=== PATIENT | male | born 1935 | race Caucasian/White ===

== ENCOUNTER 2018-10-16 12:40 | Inpatient (IN) ==
--- NOTE | 2018-10-16 13:17 | ED ---
HPI General Chief complaint: Shortness of Breath/Dyspnea Stated complaint: Doctor Sent Time Seen by Provider: 10/16/18 13:00 History of Present Illness HPI narrative: This is an 83-year-old male who reports a history of hypertension and hyperlipidemia. He presents for evaluation of dyspnea on exertion. He reports that over the past several months he has been having gradually worsening dyspnea with exertion. He was seen today by his primary care physician Dr. levin and sent here for further evaluation. He denies orthopnea. He reports bilateral lower extremity edema as well as right lower leg pain from a fall 4 weeks ago. He is denying any chest pain, dizziness, lightheadedness, palpitations, nausea, vomiting, abdominal pain. Symptoms are moderate, aggravated by exertion. He has no other complaints at this time. Related Data Home Medications Medication Instructions Recorded Confirmed aspirin [Aspir-Low] 81 mg PO DAILY 10/16/18 10/16/18 Allergies Allergy/AdvReac Type Severity Reaction Status Date / Time No Known Allergies Allergy Verified 10/16/18 14:30 Review of Systems ROS: all other systems reviewed are negative [facility] Medical History Medical History HTN (hypertension) (Acute) High cholesterol (Acute) Social History Social History Substance History: No History of Abuse Second Hand Smoke Exposure: No Smoking Status: Former smoker How Often Do You Have a Drink Containing Alcohol: Monthly or less Recent Travel in [facility] within the Last 8 Weeks: No Recent Out of Country Travel within the Last 8 Weeks: No Immunization History Tetanus Immunization: Unsure Exam Narrative Exam Narrative: GENERAL: Pleasant well-developed well-nourished male in no acute distress SKIN: Warm and dry. HEAD: Atraumatic. Normocephalic. EYES: Pupils equal and round. No scleral icterus. No injection or drainage. ENT: No nasal bleeding or discharge. Mucous membranes pink and moist. NECK: Trachea midline. No JVD. CARDIOVASCULAR: Irregular tachycardic rate and rhythm. No murmur appreciated. RESPIRATORY: No accessory muscle use. Clear to auscultation. Breath sounds equal bilaterally. GASTROINTESTINAL: Abdomen soft, non-tender, nondistended. Hepatic and splenic margins not palpable. MUSCULOSKELETAL: No obvious deformities. 2+ lower extremity edema bilaterally. There is ecchymosis to the anterior right patten. NEUROLOGICAL: Awake and alert. No obvious cranial nerve deficits. Motor grossly within normal limits. Normal speech. Course Initial Documented Vital Signs Temperature 97.3 F L 12/11/18 12:43 Pulse Rate 155 H 10/16/18 12:43 Respiratory Rate 19 10/16/18 12:43 Blood Pressure 166/132 H 10/16/18 12:43 Pulse Oximetry 92 L 10/16/18 12:43 Last Documented Vital Signs Temperature 97.3 F L 10/16/18 12:43 Pulse Rate 122 H 10/16/18 14:24 Respiratory Rate 16 10/16/18 14:24 Blood Pressure 157/105 H 10/16/18 14:24 Pulse Oximetry 95 10/16/18 14:24 Medical Decision Making MDM Narrative Medical decision making narrative: The patient was placed on ECG monitoring pulse oximetry. A 12-lead EKG was obtained revealing atrial fibrillation with RVR, rate of 156. Lab work, lower extremity ultrasound, chest x-ray ordered. The patient was given a bolus of diltiazem. The patient's heart rate remained in atrial fibrillation with RVR, therefore he was started on diltiazem drip. Lab work and imaging studies have been reviewed. I discussed with Eileen at Dr. Aleman's office who is agreeable with admission to Dr. Aleman. Medical Screen Exam Complete: Yes Emergency Medical Condition: Yes Differential Diagnosis Differential Diagnosis: Atrial fibrillation, CHF, pulmonary embolism, pneumonia , pneumothorax, SVT, ventricular tachycardia Lab Data Result diagrams: 10/16/18 13:15 10/16/18 13:15 Lab Results 10/16/18 10/16/18 10/16/18 Range/Units 13:15 13:15 13:15 WBC 7.1 (4.0-11.0) th/mm3 RBC 4.03 L (4.50-5.90) mil/mm3 Hgb 12.9 L (13.0-17.0) gm/dL Hct 39.3 (39.0-51.0) % MCV 97.6 (80.0-100.0) fL MCH 32.1 (27.0-34.0) pg MCHC 32.9 (32.0-36.0) % RDW 16.0 (11.6-17.2) % Plt Count 260 (150-450) th/mm3 MPV 7.5 (7.0-11.0) fL Neut % (Auto) 77.5 H (16.0-70.0) % Lymph % (Auto) 11.6 (9.0-44.0) % Calloway % (Auto) 9.8 H (0.0-8.0) % Eos % (Auto) 0.7 (0.0-4.0) % Baso % (Auto) 0.4 (0.0-2.0) % Neut # (Auto) 5.5 (1.8-7.7) th/mm3 Lymph # (Auto) 0.8 L (1.0-4.8) th/mm3 Calloway # (Auto) 0.7 (0.0-0.9) th/mm3 Eos # (Auto) 0.0 (0.0-0.4) th/mm3 Baso # (Auto) 0.0 (0.0-0.2) th/mm3 WBC Differential . Differential Comment Auto diff final PT 10.8 (9.8-11.6) sec INR 1.1 Ratio APTT 28.0 (23.4-31.7) sec Sodium 142 (136-145) meq/L Potassium 4.2 (3.5-5.1) meq/L Chloride 103 (98-107) meq/L Carbon Dioxide 31.7 (21.0-32.0) meq/L Anion Gap 7 (5-15) meq/L BUN 23 H (7-18) mg/dL Creatinine 1.11 (0.60-1.30) mg/dL Estimated GFR 63 L (>89) mL/min Random Glucose 112 H (74-106) mg/dL Calcium 8.6 (8.5-10.1) mg/dL Magnesium 2.0 (1.5-2.5) mg/dL Total Bilirubin 0.6 (0.2-1.0) mg/dL AST 32 (15-37) U/L ALT 47 (12-78) U/L Alkaline Phosphatase 68 (45-117) U/L Total Creatine Kinase 99 (39-308) U/L Troponin I Less than 0.02 L (0.02-0.05) ng/mL B-Natriuretic Peptide (0-100) pg/mL Total Protein 7.4 (6.4-8.2) g/dL Albumin 3.6 (3.4-5.0) g/dL TSH (0.358-3.740) uIU/mL 10/16/18 10/16/18 Range/Units 13:15 13:15 WBC (4.0-11.0) th/mm3 RBC (4.50-5.90) mil/mm3 Hgb (13.0-17.0) gm/dL Hct (39.0-51.0) % MCV (80.0-100.0) fL MCH (27.0-34.0) pg MCHC (32.0-36.0) % RDW (11.6-17.2) % Plt Count (150-450) th/mm3 MPV (7.0-11.0) fL Neut % (Auto) (16.0-70.0) % Lymph % (Auto) (9.0-44.0) % Calloway % (Auto) (0.0-8.0) % Eos % (Auto) (0.0-4.0) % Baso % (Auto) (0.0-2.0) % Neut # (Auto) (1.8-7.7) th/mm3 Lymph # (Auto) (1.0-4.8) th/mm3 Calloway # (Auto) (0.0-0.9) th/mm3 Eos # (Auto) (0.0-0.4) th/mm3 Baso # (Auto) (0.0-0.2) th/mm3 WBC Differential Differential Comment PT (9.8-11.6) sec INR Ratio APTT (23.4-31.7) sec Sodium (136-145) meq/L Potassium (3.5-5.1) meq/L Chloride (98-107) meq/L Carbon Dioxide (21.0-32.0) meq/L Anion Gap (5-15) meq/L BUN (7-18) mg/dL Creatinine (0.60-1.30) mg/dL Estimated GFR (>89) mL/min Random Glucose (74-106) mg/dL Calcium (8.5-10.1) mg/dL Magnesium (1.5-2.5) mg/dL Total Bilirubin (0.2-1.0) mg/dL AST (15-37) U/L ALT (12-78) U/L Alkaline Phosphatase (45-117) U/L Total Creatine Kinase (39-308) U/L Troponin I (0.02-0.05) ng/mL B-Natriuretic Peptide 233 H (0-100) pg/mL Total Protein (6.4-8.2) g/dL Albumin (3.4-5.0) g/dL TSH 1.920 (0.358-3.740) uIU/mL Imaging Data Radiologist's impression: Chest X-Ray 10/16/18 13:12 CONCLUSION: No evidence of acute cardiopulmonary process. Venous Doppler Study 10/16/18 13:12 CONCLUSION: The study is negative for bilateral lower extremity deep venous thrombosis. Discharge Plan Discharge Disposition Patient Disposition: ED Admit(ED Internal Use Only) Discharge Condition Condition: Stable Discharge Order Discharge Orders: ED Use Only Admit Order (Routine); Ordered 10/16/18 Ordered By: Iain Short Discharge Details Diagnosis: Atrial fibrillation with RVR Physicians Team ED Provider: Will Ruby ED Midlevel Provider: Iain Short Primary Care Provider: Cj Aleman Rxs /Orders / Referrals /Forms Prescriptions: No Action aspirin [Aspir-Low] 81 mg Tablet,Delayed Release (Dr/Ec) 81 mg PO DAILY RF: 0 Status ED Status: With Doctor
[2018-10-16 13:41] LABS: Baso % (Auto) 0.4 % (0.0-2.0); Eos % (Auto) 0.7 % (0.0-4.0); Hematocrit 39.3 % (39.0-51.0); Hemoglobin 12.9 gm/dL (13.0-17.0); Lymph # (Auto) 0.8 th/mm3 (1.0-4.8); Lymph % (Auto) 11.6 % (9.0-44.0); Mean Corpuscular HGB Conc 32.9 % (32.0-36.0); Mean Corpuscular Hemoglobin 32.1 pg (27.0-34.0); Mean Corpuscular Volume 97.6 fL (80.0-100.0); Mean Platelet Volume 7.5 fL (7.0-11.0); Mono # (Auto) 0.7 th/mm3 (0.0-0.9); Mono % (Auto) 9.8 % (0.0-8.0); Neut # (Auto) 5.5 th/mm3 (1.8-7.7); Neut % (Auto) 77.5 % (16.0-70.0); Platelet Count 260 th/mm3 (150-450); Red Blood Count 4.03 mil/mm3 (4.50-5.90); White Blood Count 7.1 th/mm3 (4.0-11.0)
[2018-10-16 14:01] LABS: Albumin 3.6 g/dL (3.4-5.0); Anion Gap 7 meq/L (5-15); Aspartate Aminotransferase 32 U/L (15-37); Blood Urea Nitrogen 23 mg/dL (7-18); Calcium 8.6 mg/dL (8.5-10.1); Carbon Dioxide 31.7 meq/L (21.0-32.0); Chloride 103 meq/L (98-107); Glomerular Filtration Rate 63 mL/min (>89); Glucose,Random 112 mg/dL (74-106); Potassium 4.2 meq/L (3.5-5.1); Sodium 142 meq/L (136-145)
[2018-10-16 14:05] LABS: Alanine Aminotransferase 47 U/L (12-78); Alkaline Phosphatase 68 U/L (45-117); Total Protein 7.4 g/dL (6.4-8.2)
[2018-10-16 14:08] LABS: INR 1.1 Ratio; Prothrombin Time 10.8 sec (9.8-11.6)
--- NOTE | 2018-10-16 14:10 | US ---
EXAM DATE: 10/16/2018 1:54 PM EST AGE/SEX: 83 years / Male INDICATIONS: Bilateral leg swelling. CLINICAL DATA: This is the patient's initial encounter. Patient reports that signs and symptoms have been present for 1 month and indicates a pain score of 0/10. MEDICAL/SURGICAL HISTORY: Hypercholesterolemia. Hypertension. None. COMPARISON: No prior exams available for comparison. TECHNIQUE: Venous ultrasound of both lower extremities was performed from the inguinal ligament to t he proximal calf. Real-time, color Doppler and spectral tracing, compression and augmentation techni ques were used. FINDINGS: Right Leg: Normal compression of the deep venous system from the inguinal region to the proximal mahamed f. No echogenic clot is seen. Normal response of the venous system to augmentation and respiration. Left Leg: Normal compression of the deep venous system from the inguinal region to the proximal calf . No echogenic clot is seen. Normal response of the venous system to augmentation and respiration. Other: None. CONCLUSION: The study is negative for bilateral lower extremity deep venous thrombosis. Electronically signed by: Kali Branch MD 10/16/2018 2:09 PM EST
--- NOTE | 2018-10-16 14:22 | XR ---
EXAM DATE: 10/16/2018 2:16 PM EST AGE/SEX: 83 years / Male INDICATIONS: Dyspnea. CLINICAL DATA: This is the patient's initial encounter. Patient reports that signs and symptoms have been present for 1 month and indicates a pain score of 0/10. MEDICAL/SURGICAL HISTORY: None. . recent stents COMPARISON: No prior exams available for comparison. FINDINGS: Lungs are hypoaerated. There is no evidence of consolidating airspace disease or congestion. Heart and mediastinal structures are unremarkable. Osseous structures are intact. CONCLUSION: No evidence of acute cardiopulmonary process. Electronically signed by: Kali Branch MD 10/16/2018 2:20 PM EST
[2018-10-16] MEDS: dilTIAZem Inj 125 MG in Sodium Chlor 0.9% Inj 100 ML IV.CONT PRN (14:23)
[2018-10-16 14:45] LABS: Creatine Kinase 99 U/L (39-308)
[2018-10-16] MEDS ORDERED: Bisacodyl 10 MG Supp RECTAL PRN (16:23)
[2018-10-16] MEDS ORDERED: Acetaminophen 325 MG Tablet PO PRN (16:23)
--- NOTE | 2018-10-16 16:41 | CT ---
EXAM DATE: 10/16/2018 4:36 PM EST AGE/SEX: 83 years / Male INDICATIONS: Intermittent shortness of breath. CLINICAL DATA: This is the patient's initial encounter. Patient reports that signs and symptoms have been present for 1 week and indicates a pain score of 0/10. MEDICAL/SURGICAL HISTORY: Hypertension. None. RADIATION DOSE: 10.70 CTDI (mGy) COMPARISON: No prior exams available for comparison. TECHNIQUE: Volumetric scanning was performed using a multi-row detector CT scanner during bolus infu zeferino of 75 ml Omnipaque 350 (iohexol) nonionic water-soluble contrast as a single exam dose. The vianey a was post processed with a variety of visualization algorithms including full volume maximum intensi ty projection and sliding thin slab reformation. Using automated exposure control and adjustment of the mA and/or kV according to patient size, radiation dose was kept as low as reasonably achievable t o obtain optimal diagnostic quality images. DICOM format image data is available electronically for review and comparison. FINDINGS: Examination of the pulmonary vasculature demonstrates good filling of the main, lobar and segmental b ranches. There are no filling defects to suggest pulmonary embolism. Multiplanar reconstructions are also unremarkable. There is minimal groundglass opacity in the superior segment of both lower lobes likely inflammatory. Follow-up CT scan in 3 months is recommended to ensure resolution. Small bilateral effusions are pre sent. Examination of the mediastinum demonstrates no abnormally enlarged lymph nodes by CT criteria. No axi llary or hilar abnormalities are identified. Coronary artery calcifications are present. The visualiz ed upper abdominal structures are unremarkable. CONCLUSION: No evidence of pulmonary embolism. Scattered groundglass opacities bilaterally with small bilateral effusions. This may reflect edema. F ollowup CT scan in 3 months is recommended. Electronically signed by: Franki Alegre MD 10/16/2018 4:39 PM EST
[2018-10-16] MEDS ORDERED: Enoxaparin Inj 40 MG/0.4 ML Syringe SQ SCH (18:00)
--- NOTE | 2018-10-16 19:04 | P.CONCA ---
History of Present Illness Service: Cardiology Consult date: 10/16/18 Requesting Physician: Eileen Ardon Reason for Consult: Atrial fibrillation with RVR Primary Care Provider: Cj Aleman DO History of Present Illness: This is a 83-year-old male with a past medical history of atrial fibrillation, syncope, hyperlipidemia and hypertension. Over the last few months he has had an increase in shortness of breath with activity. He also complained of increase in swelling of the lower extremities. He states that 5 months ago he had a syncopal episode and was hospitalized in [place]. He had another syncopal episode 7 weeks ago, and fell on his right side. He was hospitalized at which time he had a stress test then a cardiac catheterization and 2 stents placed. His right leg is still bruised and has signs of inflammation. He is currently on a Cardizem gtt. He he denies any CP, pressure or dizziness. He does complain of mild SOB and edema in the lower extremities. Review of Systems All other systems reviewed negative except as stated in HPI [facility] - History History Provided By: Patient - Medical History Medical History: Medical History (Last Updated 10/16/18 @ 12:47 by Tereza Boyer) HTN (hypertension) High cholesterol - Tobacco History Second Hand Smoke Exposure: No Tobacco Use In Past 30 Days: No Smoking Status: Former smoker - Alcohol History How Often Do You Have a Drink Containing Alcohol: Monthly or less - Substance Use History Substance History: No History of Abuse - Travel History Recent Travel in the [place] Within the Last 8 Weeks: No Recent Travel Out of the Country Within the Last 8 Weeks: No - Immunization History Tetanus Immunization: Unsure Medications and Allergies Allergies Allergy/AdvReac Type Severity Reaction Status Date / Time No Known Allergies Allergy Verified 10/16/18 14:30 Home Medications Medication Instructions Recorded Confirmed Type aspirin [Aspir-Low] 81 mg PO DAILY 10/16/18 10/16/18 History Active Medications: Active Medications Acetaminophen (Tylenol) 650 mg PO Q4H PRN PRN Reason: Temp > 100.4 Al Hydroxide/Mg Hydroxide (Milk Of Magnesia Liq) 30 ml PO Q12H PRN PRN Reason: Mild Constipation Bisacodyl (Dulcolax Supp) 10 mg RECTAL DAILY PRN PRN Reason: SEVERE CONSITIPATION Enoxaparin Sodium (Lovenox Inj) 40 mg SQ Q24H MORENITA Diltiazem HCl 125 mg/ Sodium (Chloride) 125 mls @ 5 mls/hr IV.CONT TITRATE PRN ; Protocol PRN Reason: Per Protocol Last Titration: 10/16/18 15:00 Dose: 10 mg/hr, 10 mls/hr Lactulose (Lactulose Liq) 30 ml PO DAILY PRN PRN Reason: SEVERE CONSITIPATION Ondansetron HCl (Zofran Inj) 4 mg IV.PUSH Q6H PRN PRN Reason: NAUSEA OR VOMITING Senna/Docusate Sodium (Alee-Colace) 1 tab PO BID [facility] Sennosides (Senokot) 17.2 mg PO Q12H PRN PRN Reason: Moderate Constipation Sodium Chloride (Ns Flush) 2 ml IV.FLUSH BID MORENITA Sodium Chloride (Ns Flush) 2 ml IV.FLUSH PRN PRN PRN Reason: FLUSH AFTER USING IV ACCESS Exam Vital signs: Vital Signs 10/16/18 12:43 10/16/18 12:57 10/16/18 13:12 Temperature 97.3 F L Pulse Rate 155 H 121 H Respiratory Rate 19 20 Blood Pressure 166/132 H 140/98 H Pulse Oximetry 92 L 90 L 93 L 10/16/18 13:30 10/16/18 14:08 10/16/18 14:24 Temperature Pulse Rate 102 H 108 H 122 H Respiratory Rate 15 16 16 Blood Pressure 134/83 146/93 H 157/105 H Pulse Oximetry 93 L 94 L 95 10/16/18 15:00 10/16/18 16:00 10/16/18 17:00 Temperature Pulse Rate 114 H 104 H 102 H Respiratory Rate 15 17 16 Blood Pressure 160/85 H 145/72 H 140/93 H Pulse Oximetry 97 97 Intake & Output 10/15/18 10/16/18 10/16/18 18:59 06:59 18:59 Weight 108.862 kg - Constitutional no acute distress - Routine HEENT Exam Head: Present: normocephalic Eye: Present: PERRL ENT: Present: mucous membranes moist - Routine Neck Exam Present: full ROM - Routine Respiratory Exam Present: CTA bilaterally - Routine Cardiovascular Exam Present: S1, S2, tachycardia, irregular rhythm - Routine Abdominal Exam Present: normoactive bowel sounds - Routine Extremities Exam Present: edema, full ROM, pulses intact, normal capillary refill Comments: 2+ edema LE's, right lower extremities has signs of inflammation and is warm to touch. - Routine Skin Exam Present: intact - Routine Neurological Exam Present: oriented X3 Results 10/16/18 13:15 10/16/18 13:15 Cardiac Enzymes 10/16/18 10/16/18 Range/Units 13:15 13:15 AST 32 (15-37) U/L Troponin I Less than 0.02 L (0.02-0.05) ng/mL B-Natriuretic Peptide 233 H (0-100) pg/mL Coagulation 10/16/18 10/16/18 Range/Units 13:15 13:15 PT 10.8 (9.8-11.6) sec APTT 28.0 (23.4-31.7) sec B-Natriuretic Peptide 233 H (0-100) pg/mL CBC 10/16/18 Range/Units 13:15 WBC 7.1 (4.0-11.0) th/mm3 RBC 4.03 L (4.50-5.90) mil/mm3 Hgb 12.9 L (13.0-17.0) gm/dL Hct 39.3 (39.0-51.0) % Plt Count 260 (150-450) th/mm3 Neut # (Auto) 5.5 (1.8-7.7) th/mm3 Lymph # (Auto) 0.8 L (1.0-4.8) th/mm3 Kay # (Auto) 0.7 (0.0-0.9) th/mm3 Eos # (Auto) 0.0 (0.0-0.4) th/mm3 Baso # (Auto) 0.0 (0.0-0.2) th/mm3 Comprehensive Metabolic Panel 10/16/18 Range/Units 13:15 Sodium 142 (136-145) meq/L Potassium 4.2 (3.5-5.1) meq/L Chloride 103 (98-107) meq/L Carbon Dioxide 31.7 (21.0-32.0) meq/L BUN 23 H (7-18) mg/dL Creatinine 1.11 (0.60-1.30) mg/dL Calcium 8.6 (8.5-10.1) mg/dL AST 32 (15-37) U/L ALT 47 (12-78) U/L Alkaline Phosphatase 68 (45-117) U/L Total Protein 7.4 (6.4-8.2) g/dL Albumin 3.6 (3.4-5.0) g/dL Intake and Output 10/16/18 10/16/18 10/16/18 06:59 14:59 22:59 Other: Weight 108.862 kg Patient Weight 10/17/18 06:59 Weight 108.862 kg - Imaging and Cardiology Imaging: Impressions Chest X-Ray 10/16/18 13:12 CONCLUSION: No evidence of acute cardiopulmonary process. Venous Doppler Study 10/16/18 13:12 CONCLUSION: The study is negative for bilateral lower extremity deep venous thrombosis. Chest CTA 10/16/18 14:22 CONCLUSION: No evidence of pulmonary embolism. Scattered groundglass opacities bilaterally with small bilateral effusions. This may reflect edema. Followup CT scan in 3 months is recommended. Assessment and Plan - Assessment (1) Atrial fibrillation with RVR Code(s): I48.91 - Unspecified atrial fibrillation Status: Acute (2) HTN (hypertension) Code(s): I10 - Essential (primary) hypertension Status: Acute (3) Hyperlipidemia Code(s): E78.5 - Hyperlipidemia, unspecified Status: Acute - Plan Patient currently in atrial fibrillation with RVR, we will continue Cardizem gtt. Patient receiving Lovenox today for anticoagulation. We will restart patient on his Eliquis tomorrow. We will obtain a 2D echo to evaluate LV function. Troponin levels are not trending, no signs of acute coronary syndrome at this time. We will continue to monitor patient during hospitalization. The patient was seen and evaluated by Dr. Zamora who participated in care, management and decision making. - Attending Attestation Patient seen and examined. I reviewed and agree with the evaluation and plan as presented. Continue rate control and anticoagulation. Check echo to evaluate LV function. Continue to monitor on telemetry. Will continue to follow in the hospital and as outpatient as well.
[2018-10-16] MEDS: Senna/Docusate Sodium 8.6/50 MG Tablet PO SCH (22:07)
[2018-10-17] MEDS: dilTIAZem Inj 125 MG in Sodium Chlor 0.9% Inj 100 ML IV.CONT PRN ×2 (00:15→15:50)
[2018-10-17 07:25] LABS: Baso % (Auto) 0.6 % (0.0-2.0); Eos # (Auto) 0.1 th/mm3 (0.0-0.4); Eos % (Auto) 1.3 % (0.0-4.0); Hematocrit 39.5 % (39.0-51.0); Hemoglobin 13.2 gm/dL (13.0-17.0); Lymph # (Auto) 0.9 th/mm3 (1.0-4.8); Lymph % (Auto) 14.5 % (9.0-44.0); Mean Corpuscular HGB Conc 33.3 % (32.0-36.0); Mean Corpuscular Hemoglobin 31.4 pg (27.0-34.0); Mean Corpuscular Volume 94.3 fL (80.0-100.0); Mean Platelet Volume 8.1 fL (7.0-11.0); Mono # (Auto) 0.7 th/mm3 (0.0-0.9); Mono % (Auto) 11.5 % (0.0-8.0); Neut # (Auto) 4.7 th/mm3 (1.8-7.7); Neut % (Auto) 72.1 % (16.0-70.0); Platelet Count 260 th/mm3 (150-450); Red Blood Count 4.19 mil/mm3 (4.50-5.90); Red Cell Distribution Width 15.5 % (11.6-17.2); White Blood Count 6.5 th/mm3 (4.0-11.0)
--- NOTE | 2018-10-17 08:19 | P.HPFP ---
History of Present Illness Primary Care Physician: Cj Aleman DO History of Present Illness: This is an 83-year-old male who reports a history of hypertension and hyperlipidemia. He presents for evaluation of dyspnea on exertion going on for several months. He also states he has been having B/L le edema. He was seen in office today, EKG done showing Afib w/ rvr, he was referred to ER. - Diagnosis (1) Atrial fibrillation with RVR (2) HTN (hypertension) (3) Hyperlipidemia (4) Edema Inpatient Certification: I certify that the inpatient services were ordered in accordance with Medicare regulations governing the order. This includes certification that hospital inpatient services are reasonable and necessary and in the case of services not specified as inpatient-only under 42 CFR 419.22(n), that they are appropriately provided as inpatient services in accordance to with the 2-midnight benchmark under 43 CFR 412.3(e) Estimated Total Length of Stay (Days): 3 Plans for Post Hospital Care: Not yet determined PMFSH - History History Provided By: Patient - Medical History Medical History: Medical History (Last Updated 10/16/18 @ 12:47 by Terzea Boyer) HTN (hypertension) High cholesterol - Tobacco History Second Hand Smoke Exposure: No Tobacco Use In Past 30 Days: No Smoking Status: Former smoker Tobacco Type: Cigarettes - Alcohol History How Often Do You Have a Drink Containing Alcohol: Monthly or less - Substance Use History Substance History: No History of Abuse - Travel History Recent Travel in the [place] Within the Last 8 Weeks: No Recent Travel Out of the Country Within the Last 8 Weeks: No - Immunization History Tetanus Immunization: <5 Years Hx Influenza Vaccine This Season: Yes Medications and Allergies Active Medications: Active Medications Acetaminophen (Tylenol) 650 mg PO Q4H PRN PRN Reason: Temp > 100.4 Al Hydroxide/Mg Hydroxide (Milk Of Magnesia Liq) 30 ml PO Q12H PRN PRN Reason: Mild Constipation Bisacodyl (Dulcolax Supp) 10 mg RECTAL DAILY PRN PRN Reason: SEVERE CONSITIPATION Enoxaparin Sodium (Lovenox Inj) 40 mg SQ Q24H [facility] [place] Last Admin: 10/16/18 21:23 Dose: 40 mg Diltiazem HCl 125 mg/ Sodium (Chloride) 125 mls @ 5 mls/hr IV.CONT TITRATE PRN ; Protocol PRN Reason: Per Protocol Last Titration: 10/17/18 02:03 Dose: 5 mg/hr, 5 mls/hr Lactulose (Lactulose Liq) 30 ml PO DAILY PRN PRN Reason: SEVERE CONSITIPATION Ondansetron HCl (Zofran Inj) 4 mg IV.PUSH Q6H PRN PRN Reason: NAUSEA OR VOMITING Senna/Docusate Sodium (Alee-Colace) 1 tab PO BID [facility] [place] Last Admin: 10/16/18 22:07 Dose: Not Given Sennosides (Senokot) 17.2 mg PO Q12H PRN PRN Reason: Moderate Constipation Sodium Chloride (Ns Flush) 2 ml IV.FLUSH BID [facility] [place] Last Admin: 10/16/18 22:07 Dose: Not Given Sodium Chloride (Ns Flush) 2 ml IV.FLUSH PRN PRN PRN Reason: FLUSH AFTER USING IV ACCESS Allergies Allergy/AdvReac Type Severity Reaction Status Date / Time No Known Allergies Allergy Verified 10/16/18 14:30 Home Medications Medication Instructions Recorded Confirmed Type aspirin [Aspir-Low] 81 mg PO DAILY 10/16/18 10/16/18 History Exam Vital signs: Vital Signs 10/16/18 12:43 10/16/18 12:57 10/16/18 13:12 Temperature 97.3 F L Pulse Rate 155 H 121 H Respiratory Rate 19 20 Blood Pressure 166/132 H 140/98 H Pulse Oximetry 92 L 90 L 93 L 10/16/18 13:30 10/16/18 14:08 10/16/18 14:24 Temperature Pulse Rate 102 H 108 H 122 H Respiratory Rate 15 16 16 Blood Pressure 134/83 146/93 H 157/105 H Pulse Oximetry 93 L 94 L 95 10/16/18 15:00 10/16/18 16:00 10/16/18 17:00 Temperature Pulse Rate 114 H 104 H 102 H Respiratory Rate 15 17 16 Blood Pressure 160/85 H 145/72 H 140/93 H Pulse Oximetry 97 97 10/16/18 19:00 10/16/18 21:00 10/16/18 21:50 Temperature Pulse Rate 102 H 96 H 109 H Respiratory Rate 16 16 Blood Pressure 122/65 126/71 Pulse Oximetry 95 10/16/18 21:57 10/16/18 22:00 10/16/18 23:00 Temperature 98.6 F 98.6 F Pulse Rate 98 H 114 H 101 H Respiratory Rate 18 16 Blood Pressure 158/97 H 141/81 H Pulse Oximetry 96 94 L 10/17/18 00:00 10/17/18 01:00 10/17/18 02:00 Temperature Pulse Rate 117 H 89 92 H Respiratory Rate Blood Pressure Pulse Oximetry 10/17/18 03:00 10/17/18 04:00 10/17/18 05:00 Temperature 98.6 F Pulse Rate 95 H 92 H 98 H Respiratory Rate 16 Blood Pressure 117/60 Pulse Oximetry 98 10/17/18 06:00 Temperature Pulse Rate 98 H Respiratory Rate Blood Pressure Pulse Oximetry Intake & Output 10/16/18 10/17/18 10/17/18 18:59 06:59 18:59 Intake Total 365 / 365 Output Total 750 / 750 Balance -385 / -385 Weight 108.862 kg 113 kg Intake: IV 125 / 125 Cardizem Inj 125 MG In NS Inj 125 / 125 100 ML @ 5 MG/HR 5 mls/hr IV. CONT TITRATE PRN Rx#:[id number] Oral 240 / 240 Output: Urine 750 / 750 Other: Date of Last Bowel Movement 10/17/18 # Bowel Movements 1 Weight On Admission 113 kg - Constitutional no acute distress - Routine HEENT Exam Eye: Present: PERRL ENT: Present: mucous membranes moist - Routine Respiratory Exam Present: CTA bilaterally - Routine Cardiovascular Exam Present: S1, S2 - Routine Abdominal Exam Present: soft, normoactive bowel sounds - Routine Extremities Exam Present: edema - Routine Skin Exam Present: dry, warm - Routine Neurological Exam Present: alert, oriented X3 Results - Labs Result diagrams: 10/17/18 05:52 10/16/18 13:15 Abnormal lab results 10/16/18 10/16/18 10/16/18 Range/Units 13:15 13:15 13:15 RBC 4.03 L (4.50-5.90) mil/mm3 Hgb 12.9 L (13.0-17.0) gm/dL Neut % (Auto) 77.5 H (16.0-70.0) % Bennett % (Auto) 9.8 H (0.0-8.0) % Lymph # (Auto) 0.8 L (1.0-4.8) th/mm3 BUN 23 H (7-18) mg/dL Estimated GFR 63 L (>89) mL/min Random Glucose 112 H (74-106) mg/dL Troponin I Less than 0.02 L (0.02-0.05) ng/mL B-Natriuretic Peptide 233 H (0-100) pg/mL 10/17/18 Range/Units 05:52 RBC 4.19 L (4.50-5.90) mil/mm3 Hgb (13.0-17.0) gm/dL Neut % (Auto) 72.1 H (16.0-70.0) % Bennett % (Auto) 11.5 H (0.0-8.0) % Lymph # (Auto) 0.9 L (1.0-4.8) th/mm3 BUN (7-18) mg/dL Estimated GFR (>89) mL/min Random Glucose (74-106) mg/dL Troponin I (0.02-0.05) ng/mL B-Natriuretic Peptide (0-100) pg/mL Short CBC 10/16/18 10/17/18 Range/Units 13:15 05:52 WBC 7.1 6.5 (4.0-11.0) th/mm3 Hgb 12.9 L 13.2 (13.0-17.0) gm/dL Hct 39.3 39.5 (39.0-51.0) % Plt Count 260 260 (150-450) th/mm3 BMP 10/16/18 13:15 Sodium 142 Potassium 4.2 Chloride 103 Carbon Dioxide 31.7 BUN 23 H Creatinine 1.11 Calcium 8.6 Cardiac Enzymes 10/16/18 Range/Units 13:15 Total Creatine Kinase 99 (39-308) U/L Troponin I Less than 0.02 L (0.02-0.05) ng/mL Liver Function 10/16/18 Range/Units 13:15 Total Bilirubin 0.6 (0.2-1.0) mg/dL AST 32 (15-37) U/L ALT 47 (12-78) U/L Alkaline Phosphatase 68 (45-117) U/L Albumin 3.6 (3.4-5.0) g/dL - Imaging Impressions Chest X-Ray 10/16/18 13:12 CONCLUSION: No evidence of acute cardiopulmonary process. Venous Doppler Study 10/16/18 13:12 CONCLUSION: The study is negative for bilateral lower extremity deep venous thrombosis. Chest CTA 10/16/18 14:22 CONCLUSION: No evidence of pulmonary embolism. Scattered groundglass opacities bilaterally with small bilateral effusions. This may reflect edema. Followup CT scan in 3 months is recommended. Caprini VTE Risk Assessment Caprini VTE Risk Assessment: Moderate/High Risk (score >= 2) Caprini Risk Assessment Model: Point Value = 1 Point Value = 2 Point Value = 3 Point Value = 5 Age 41-60 Minor surgery BMI > 25 kg/m2 Swollen legs Varicose veins or History of unexplained or recurrent spontaneous Oral contraceptives or hormone replacement Sepsis (< 1 month) Serious lung disease, including pneumonia (< 1 month) Abnormal pulmonary function Acute myocardial infarction Congestive heart failure (< 1 month) History of inflammatory bowel disease Medical patient at bed rest Age 61-74 Arthroscopic surgery Major open surgery (> 45 min) Laparoscopic surgery (> 45 min) Malignancy Confined to bed (> 72 hours) Immobilizing plaster cast Central venous access Age >= 75 History of VTE Family history of VTE Factor V Leiden Prothrombin [id number] Lupus anticoagulant Anticardiolipin antibodies Elevated serum homocysteine Heparin-induced thrombocytopenia Other congenital or acquired thrombophilia Stroke (< 1 month) Elective arthroplasty Hip, pelvis, or leg fracture Acute spinal cord injury (< 1 month) Prophylaxis Regimen: Total Risk Factor Score Risk Level Prophylaxis Regimen 0-1 Low Early ambulation 2 Moderate Order ONE of the following: *Sequential Compression Device (SCD) *Heparin 5000 units SQ BID 3-4 Higher Order ONE of the following medications: *Heparin 5000 units SQ TID *Enoxaparin/Lovenox 40 mg SQ daily (WT < 150 kg, CrCl > 30 mL/min) *Enoxaparin/Lovenox 30 mg SQ daily (WT < 150 kg, CrCl > 10-29 mL/min) *Enoxaparin/Lovenox 30 mg SQ BID (WT < 150 kg, CrCl > 30 mL/min) AND/OR *Sequential Compression Device (SCD) 5 or more Highest Order ONE of the following medications: *Heparin 5000 units SQ TID (Preferred with Epidurals) *Enoxaparin/Lovenox 40 mg SQ daily (WT < 150 kg, CrCl > 30 mL/min) *Enoxaparin/Lovenox 30 mg SQ daily (WT < 150 kg, CrCl > 10-29 mL/min) *Enoxaparin/Lovenox 30 mg SQ BID (WT < 150 kg, CrCl > 30 mL/min) AND *Sequential Compression Device (SCD) Assessment and Plan - Assessment (1) Atrial fibrillation with RVR Code(s): I48.91 - Unspecified atrial fibrillation Status: Acute Plan: Cardiology consult, Cardizem gtt, Lovenox (2) HTN (hypertension) Code(s): I10 - Essential (primary) hypertension Status: Acute Plan: Cont to monitor, to bring in list of home med's (3) Hyperlipidemia Code(s): E78.5 - Hyperlipidemia, unspecified Status: Acute Plan: Cont home med's, to bring list in (4) Edema Code(s): R60.9 - Edema, unspecified Status: Acute Plan: cont lasix. H&P: Quality - VTE Deep Vein Thrombosis/Pulmonary Embolism Present on Admission: No
[2018-10-17] MEDS: Furosemide 40 MG Tablet PO SCH (08:33)
[2018-10-17] MEDS: Senna/Docusate Sodium 8.6/50 MG Tablet PO SCH ×2 (08:34→20:52)
--- NOTE | 2018-10-17 10:13 | P.PNCA ---
Subjective Interval history: Patient denies any CP, pressure, palpitations, dizziness or SOB. Patient does complain of LE edema more on the left LE. Medications and Allergies Allergies Allergy/AdvReac Type Severity Reaction Status Date / Time No Known Allergies Allergy Verified 10/16/18 14:30 Home Medications Medication Instructions Recorded Confirmed Type aspirin [Aspir-Low] 81 mg PO DAILY 10/16/18 10/16/18 History Active Medications: Active Medications Acetaminophen (Tylenol) 650 mg PO Q4H PRN PRN Reason: Temp > 100.4 Al Hydroxide/Mg Hydroxide (Milk Of Magnesia Liq) 30 ml PO Q12H PRN PRN Reason: Mild Constipation Apixaban (Eliquis) 5 mg PO BID [facility] Bisacodyl (Dulcolax Supp) 10 mg RECTAL DAILY PRN PRN Reason: SEVERE CONSITIPATION Furosemide (Lasix) 40 mg PO DAILY [facility] Last Admin: 10/17/18 08:33 Dose: 40 mg Diltiazem HCl 125 mg/ Sodium (Chloride) 125 mls @ 5 mls/hr IV.CONT TITRATE PRN ; Protocol PRN Reason: Per Protocol Last Titration: 10/17/18 02:03 Dose: 5 mg/hr, 5 mls/hr Lactulose (Lactulose Liq) 30 ml PO DAILY PRN PRN Reason: SEVERE CONSITIPATION Ondansetron HCl (Zofran Inj) 4 mg IV.PUSH Q6H PRN PRN Reason: NAUSEA OR VOMITING Potassium Chloride (K-Dur) 20 meq PO DAILY [facility] Last Admin: 10/17/18 08:33 Dose: 20 meq Senna/Docusate Sodium (Alee-Colace) 1 tab PO BID [facility] Last Admin: 10/17/18 08:34 Dose: Not Given Sennosides (Senokot) 17.2 mg PO Q12H PRN PRN Reason: Moderate Constipation Sodium Chloride (Ns Flush) 2 ml IV.FLUSH BID [facility] Last Admin: 10/17/18 08:33 Dose: 2 ml Sodium Chloride (Ns Flush) 2 ml IV.FLUSH PRN PRN PRN Reason: FLUSH AFTER USING IV ACCESS Physical Exam Vital signs: Vital Signs 10/16/18 12:43 10/16/18 12:57 10/16/18 13:12 Temperature 97.3 F L Pulse Rate 155 H 121 H Respiratory Rate 19 20 Blood Pressure 166/132 H 140/98 H Pulse Oximetry 92 L 90 L 93 L 10/16/18 13:30 10/16/18 14:08 10/16/18 14:24 Temperature Pulse Rate 102 H 108 H 122 H Respiratory Rate 15 16 16 Blood Pressure 134/83 146/93 H 157/105 H Pulse Oximetry 93 L 94 L 95 10/16/18 15:00 10/16/18 16:00 10/16/18 17:00 Temperature Pulse Rate 114 H 104 H 102 H Respiratory Rate 15 17 16 Blood Pressure 160/85 H 145/72 H 140/93 H Pulse Oximetry 97 97 10/16/18 19:00 10/16/18 21:00 10/16/18 21:50 Temperature Pulse Rate 102 H 96 H 109 H Respiratory Rate 16 16 Blood Pressure 122/65 126/71 Pulse Oximetry 95 10/16/18 21:57 10/16/18 22:00 10/16/18 23:00 Temperature 98.6 F 98.6 F Pulse Rate 98 H 114 H 101 H Respiratory Rate 18 16 Blood Pressure 158/97 H 141/81 H Pulse Oximetry 96 94 L 10/17/18 00:00 10/17/18 01:00 10/17/18 02:00 Temperature Pulse Rate 117 H 89 92 H Respiratory Rate Blood Pressure Pulse Oximetry 10/17/18 03:00 10/17/18 04:00 10/17/18 05:00 Temperature 98.6 F Pulse Rate 95 H 92 H 98 H Respiratory Rate 16 Blood Pressure 117/60 Pulse Oximetry 98 10/17/18 06:00 10/17/18 07:00 10/17/18 08:00 Temperature 98.4 F Pulse Rate 98 H 100 H 100 H Respiratory Rate 20 Blood Pressure 134/76 Pulse Oximetry 96 10/17/18 08:40 10/17/18 08:41 10/17/18 09:00 Temperature Pulse Rate 98 H Respiratory Rate Blood Pressure Pulse Oximetry 96 96 10/17/18 09:57 Temperature Pulse Rate 97 H Respiratory Rate Blood Pressure Pulse Oximetry Intake & Output 10/16/18 10/17/18 10/17/18 18:59 06:59 18:59 Intake Total 365 / 365 Output Total 750 / 750 Balance -385 / -385 Weight 108.862 kg 113 kg Intake: IV 125 / 125 Cardizem Inj 125 MG In NS Inj 125 / 125 100 ML @ 5 MG/HR 5 mls/hr IV. CONT TITRATE PRN Rx#:[id number] Oral 240 / 240 Output: Urine 750 / 750 Other: Date of Last Bowel Movement 10/17/18 10/16/18 # Bowel Movements 1 Weight On Admission 113 kg - Constitutional no acute distress - Routine HEENT Exam Head: Present: normocephalic Eye: Present: PERRL ENT: Present: mucous membranes moist - Routine Neck Exam Present: full ROM - Routine Respiratory Exam Present: CTA bilaterally - Routine Cardiovascular Exam Present: S1, S2, murmur. Absent: gallop, rubs - Routine Abdominal Exam Present: normoactive bowel sounds - Routine Extremities Exam Present: edema, full ROM, pulses intact, normal capillary refill. Absent: cyanosis, clubbing - Routine Skin Exam Present: intact - Routine Neurological Exam Present: oriented X3 - Detailed Neurological Exam: Coma Scale Eye Opening: Spontaneous Verbal Response: Oriented Motor Response: Obey commands Ivan Coma Scale Total: 15 - Routine Psychiatric Exam Present: normal affect Results 10/17/18 05:52 10/16/18 13:15 Cardiac Enzymes 10/16/18 10/16/18 Range/Units 13:15 13:15 AST 32 (15-37) U/L Troponin I Less than 0.02 L (0.02-0.05) ng/mL B-Natriuretic Peptide 233 H (0-100) pg/mL Coagulation 10/16/18 10/16/18 Range/Units 13:15 13:15 PT 10.8 (9.8-11.6) sec APTT 28.0 (23.4-31.7) sec B-Natriuretic Peptide 233 H (0-100) pg/mL CBC 10/16/18 10/17/18 Range/Units 13:15 05:52 WBC 7.1 6.5 (4.0-11.0) th/mm3 RBC 4.03 L 4.19 L (4.50-5.90) mil/mm3 Hgb 12.9 L 13.2 (13.0-17.0) gm/dL Hct 39.3 39.5 (39.0-51.0) % Plt Count 260 260 (150-450) th/mm3 Neut # (Auto) 5.5 4.7 (1.8-7.7) th/mm3 Lymph # (Auto) 0.8 L 0.9 L (1.0-4.8) th/mm3 [place] # (Auto) 0.7 0.7 (0.0-0.9) th/mm3 Eos # (Auto) 0.0 0.1 (0.0-0.4) th/mm3 Baso # (Auto) 0.0 0.0 (0.0-0.2) th/mm3 Comprehensive Metabolic Panel 10/16/18 Range/Units 13:15 Sodium 142 (136-145) meq/L Potassium 4.2 (3.5-5.1) meq/L Chloride 103 (98-107) meq/L Carbon Dioxide 31.7 (21.0-32.0) meq/L BUN 23 H (7-18) mg/dL Creatinine 1.11 (0.60-1.30) mg/dL Calcium 8.6 (8.5-10.1) mg/dL AST 32 (15-37) U/L ALT 47 (12-78) U/L Alkaline Phosphatase 68 (45-117) U/L Total Protein 7.4 (6.4-8.2) g/dL Albumin 3.6 (3.4-5.0) g/dL Intake and Output 10/16/18 10/17/18 10/17/18 22:59 06:59 14:59 Intake Total 365 / 365 Output Total 750 / 750 Balance -385 / -385 Intake: IV 125 / 125 Cardizem Inj 125 MG In NS Inj 125 / 125 100 ML @ 5 MG/HR 5 mls/hr IV. CONT TITRATE PRN Rx#:[id number] Oral 240 / 240 Output: Urine 750 / 750 Other: Date of Last Bowel Movement 10/16/18 10/17/18 10/16/18 # Bowel Movements 1 Weight 113 kg 113 kg Weight On Admission 113 kg - Imaging and Cardiology Imaging: Impressions Chest X-Ray 10/16/18 13:12 CONCLUSION: No evidence of acute cardiopulmonary process. Venous Doppler Study 10/16/18 13:12 CONCLUSION: The study is negative for bilateral lower extremity deep venous thrombosis. Chest CTA 10/16/18 14:22 CONCLUSION: No evidence of pulmonary embolism. Scattered groundglass opacities bilaterally with small bilateral effusions. This may reflect edema. Followup CT scan in 3 months is recommended. Assessment and Plan - Assessment (1) Atrial fibrillation with RVR Code(s): I48.91 - Unspecified atrial fibrillation Status: Acute (2) HTN (hypertension) Code(s): I10 - Essential (primary) hypertension Status: Acute (3) Hyperlipidemia Code(s): E78.5 - Hyperlipidemia, unspecified Status: Acute - Plan Patient currently in atrial fibrillation with RVR, we will discontinue Cardizem gtt and start rate control with beta padmini. We will start the patient on Eliquis 5mg BID today for anticoagulation. We will stop Lovenox at this time. 2D echo to evaluate LV function. We will continue to monitor the patient during his hospitalization. The patient was seen and evaluated by Dr. Zamora who participated in care, management and decision making. - Attending Attestation Patient seen and examined. I reviewed and agree with the evaluation and plan as presented. Start anticoagulation with Eliquis. Switch to PO beta padmini for rate control. Continue diuresis. Echo today.
--- NOTE | 2018-10-17 13:39 | ECHRPT ---
Indication: afib and flutter CONCLUSIONS . Normal left ventricular size. Wall thickness is normal. The left ventricular systolic function is mildly reduced with an estimated ejection fraction in the range of 45- 50%. The left atrial size is mildly dilated. [id number] mitral valve regurgitation. Mild aortic valve stenosis. mean gradient is 14 mean mmhg.The estimated pulmonary arterial pressure is 42 mmHg. There is mild tricuspid valve regurgitation. BP: / HR: Rhythm: MEASUREMENTS (Male / Female) Normal Values Technical Quality: 2D ECHO LV Diastolic Diameter PLAX 5.5 cm 4.2 - 5.9 / 3.9 - 5.3 cm LV Systolic Diameter PLAX 4.6 cm IVS Diastolic Thickness 1.1 cm 0.6 - 1.0 / 0.6 - 0.9 cm LVPW Diastolic Thickness 1.2 cm 0.6 - 1.0 / 0.6 - 0.9 cm LV Relative Wall Thickness 0.4 RV Internal Dim ED PLAX 3.2 cm LVOT Diameter 2.1 cm Aortic Root Diameter 2.9 cm LA Systolic Diameter LX 4.8 cm 3.0 - 4.0 / 2.7 - 3.8 cm LV Ejection Fraction MOD BP 39.0 % >= 55 % LV Ejection Fraction MOD 4C 42.7 % LV Ejection Fraction 4C AL 44.9 % LV Ejection Fraction MOD 2C 38.3 % LV Ejection Fraction 2C AL 41.9 % M-MODE Aortic Root Diameter MM 4.1 cm LA Systolic Diameter MM 5.8 cm LA Ao Ratio MM 1.4 AV Cusp Separation MM 1.9 cm DOPPLER AV Peak Velocity 231.0 cm/s AV Peak Gradient 21.3 mmHg AV Mean Gradient 13.5 mmHg AV Velocity Time Integral 41.2 cm LVOT Peak Velocity 72.2 cm/s LVOT Peak Gradient 2.1 mmHg LVOT Velocity Time Integral 13.4 cm AV Area Cont Eq vti 1.1 cm AV Area Cont Eq pk 1.1 cm Mitral E Point Velocity 106.0 cm/s Mitral A Point Velocity 26.2 cm/s Mitral E to A Ratio 4.0 LV E' Lateral Velocity 7.6 cm/s Mitral E to LV E' Lateral Ratio 13.9 LV E' Septal Velocity 6.5 cm/s Mitral E to LV E' Septal Ratio 16.2 TR Peak Velocity 282.0 cm/s TR Peak Gradient 31.8 mmHg Right Atrial Pressure 10.0 mmHg Pulmonary Artery Systolic Pressu 41.8 mmHg Right Ventricular Systolic Press 41.8 mmHg PV Peak Velocity 151.0 cm/s PV Peak Gradient 9.1 mmHg FINDINGS LEFT VENTRICLE Normal left ventricular size. Wall thickness is normal. The left ventricular systolic function is mildly reduced with an estimated ejection fraction in the range of 45- 50%. RIGHT VENTRICLE Normal right ventricular size and systolic function. LEFT ATRIUM The left atrial size is mildly dilated. RIGHT ATRIUM The right atrial size is normal. ATRIAL SEPTUM Normal atrial septal thickness without atrial level shunting by limited color doppler interrogation. AORTA The aortic root and proximal ascending aorta are normal in size on limited imaging. MITRAL VALVE [id number] mitral valve regurgitation. AORTIC VALVE Mild aortic valve stenosis. mean gradient is 14 mean mmhg. TRICUSPID VALVE The estimated pulmonary arterial pressure is 42 mmHg. There is mild tricuspid valve regurgitation. PULMONARY VALVE No pulmonary valve regurgitation or stenosis. VESSELS The inferior vena cava is normal in size. PERICARDIUM No pericardial effusion. Aly Carney MD, FACC (Electronically Signed) Final Date:17 October 2018 13:38
[2018-10-17] MEDS: Metoprolol Tartrate 25 MG Tablet PO SCH (20:50)
--- NOTE | 2018-10-17 23:10 | ECG ---
Date Performed: 10/16/2018 Time Performed: 13:06:52 PTAGE: 83 years EKG: ATRIAL FIBRILLATION WITH RAPID VENTRICULAR RESPONSE LEFT ANTERIOR FASCICULAR BLOCK POSSIBLE ANTERIOR MYOCARDIAL INFARCTION ABNORMAL ECG NO PREVIOUS TRACING DOCTOR: Feroz Paez Interpretating Date/Time 10/17/2018 23:09:30
[2018-10-18 00:33] LABS: Calcium 8.2 mg/dL (8.5-10.1); Potassium 4.1 meq/L (3.5-5.1)
[2018-10-18] MEDS: Furosemide 40 MG Tablet PO SCH (08:15)
[2018-10-18] MEDS: Senna/Docusate Sodium 8.6/50 MG Tablet PO SCH (08:15)
[2018-10-18] MEDS: Metoprolol Tartrate 25 MG Tablet PO SCH (08:15)
--- NOTE | 2018-10-18 12:31 | P.DS ---
Date of admission: 10/16/18 16:06 Primary care physician: Cj Aleman DO Brief History from admission: This is an 83-year-old male who reports a history of hypertension and hyperlipidemia. He presents for evaluation of dyspnea on exertion going on for several months. He also states he has been having B/L le edema. He was seen in office today, EKG done showing Afib w/ rvr, he was referred to ER. DS: Diagnosis - Discharge Diagnosis (1) Atrial fibrillation with RVR Status: Acute (2) HTN (hypertension) Status: Acute (3) Hyperlipidemia Status: Acute (4) Edema Status: Acute DS: Summary Hospital Course: Came in with new onset A fib w/ RVR. Cardiology consulted treated with Cardizem drip, converted to po metoprolol, started on Elquis 5 mg bid. - Time Spent with Patient Total time spent providing and/or coordinating discharge services: 15 Less than 30 minutes - Quality: AMI Clinical Trial Participant: No - Quality: Stroke Symptom Onset Unknown: No - Quality: VTE Deep Vein Thrombosis/Pulmonary Embolism Present on Admission: No Exam Vital signs: Vital Signs 10/17/18 13:00 10/17/18 14:00 10/17/18 15:00 Temperature 98.6 F Pulse Rate 103 H 108 H 112 H Respiratory Rate 20 Blood Pressure 138/87 Pulse Oximetry 96 10/17/18 16:23 10/17/18 16:24 10/17/18 17:00 Temperature Pulse Rate 110 H 112 H Respiratory Rate 18 Blood Pressure Pulse Oximetry 10/17/18 18:00 10/17/18 19:00 10/17/18 20:00 Temperature 98.4 F Pulse Rate 89 109 H 104 H Respiratory Rate 18 Blood Pressure 148/78 H Pulse Oximetry 98 96 10/17/18 21:00 10/17/18 22:00 10/17/18 23:00 Temperature 98.4 F Pulse Rate 106 H 92 H 96 H Respiratory Rate 20 Blood Pressure 110/71 Pulse Oximetry 98 10/18/18 00:00 10/18/18 01:00 10/18/18 02:00 Temperature Pulse Rate 94 H 92 H 88 Respiratory Rate Blood Pressure Pulse Oximetry 10/18/18 03:00 10/18/18 04:00 10/18/18 05:00 Temperature 98.2 F Pulse Rate 91 H 92 H 90 Respiratory Rate 20 Blood Pressure 128/86 Pulse Oximetry 96 10/18/18 06:00 10/18/18 07:00 10/18/18 08:00 Temperature 97.9 F Pulse Rate 90 104 H 102 H Respiratory Rate 19 Blood Pressure 130/70 Pulse Oximetry 91 L 10/18/18 09:00 10/18/18 09:26 10/18/18 10:02 Temperature Pulse Rate 107 H 108 H Respiratory Rate Blood Pressure Pulse Oximetry 91 L 10/18/18 10:53 Temperature Pulse Rate 104 H Respiratory Rate Blood Pressure Pulse Oximetry Intake & Output 10/17/18 10/18/18 10/18/18 18:59 06:59 18:59 Intake Total 605 / 605 315 / 315 Balance 605 / 605 315 / 315 Weight 112.1 kg Intake: IV 125 / 125 75 / 75 Cardizem Inj 125 MG In NS Inj 125 / 125 75 / 75 100 ML @ 5 MG/HR 5 mls/hr IV. CONT TITRATE PRN Rx#:[id number] Oral 480 / 480 240 / 240 Other: # Voids 4 5 Date of Last Bowel Movement 10/17/18 10/16/18 10/16/18 # Bowel Movements 1 - Constitutional no acute distress - Routine HEENT Exam Eye: Present: PERRL ENT: Present: mucous membranes moist - Routine Neck Exam Present: supple - Routine Respiratory Exam Present: CTA bilaterally - Routine Cardiovascular Exam Present: S1, S2 - Routine Abdominal Exam Present: soft, normoactive bowel sounds - Routine Extremities Exam Present: edema - Routine Skin Exam Present: dry, warm - Routine Neurological Exam Present: alert Results Procedures completed during hospitalization: na Labs on day of discharge: Labs from last 24 hours 10/18/18 00:00 Sodium 140 Potassium 4.1 Chloride 101 Carbon Dioxide 35.0 H Anion Gap 4 L BUN 21 H Creatinine 1.00 Estimated GFR 71 L Random Glucose 103 Calcium 8.2 L - Impressions ITS Impressions Chest X-Ray 10/16/18 13:12 CONCLUSION: No evidence of acute cardiopulmonary process. Venous Doppler Study 10/16/18 13:12 CONCLUSION: The study is negative for bilateral lower extremity deep venous thrombosis. Chest CTA 10/16/18 14:22 CONCLUSION: No evidence of pulmonary embolism. Scattered groundglass opacities bilaterally with small bilateral effusions. This may reflect edema. Followup CT scan in 3 months is recommended. Discharge Plan - Discharge Disposition Patient Disposition: 01 Discharge Home - Discharge Condition Condition: Stable - Discharge Order Discharge Orders: Discharge Order (Routine); Ordered 10/18/18 Ordered By: Eileen Ardon - Physicians Team Primary Care Provider: Cj Aleman Attending Provider: Cj Aleman Other Providers: Yolanda Zamora MD
--- NOTE | 2018-10-18 12:58 | P.PNCA ---
Subjective Interval history: No CP or SOB, feels better Medications and Allergies Active Medications: Active Medications Acetaminophen (Tylenol) 650 mg PO Q4H PRN PRN Reason: Temp > 100.4 Last Admin: 10/17/18 15:49 Dose: 650 mg Al Hydroxide/Mg Hydroxide (Milk Of Magnesia Liq) 30 ml PO Q12H PRN PRN Reason: Mild Constipation Apixaban (Eliquis) 5 mg PO BID [facility] Last Admin: 10/18/18 08:15 Dose: 5 mg Bisacodyl (Dulcolax Supp) 10 mg RECTAL DAILY PRN PRN Reason: SEVERE CONSITIPATION Furosemide (Lasix) 40 mg PO DAILY [facility] Last Admin: 10/18/18 08:15 Dose: 40 mg Lactulose (Lactulose Liq) 30 ml PO DAILY PRN PRN Reason: SEVERE CONSITIPATION Metoprolol Tartrate (Lopressor) 25 mg PO BID [facility] Last Admin: 10/18/18 08:15 Dose: 25 mg Ondansetron HCl (Zofran Inj) 4 mg IV.PUSH Q6H PRN PRN Reason: NAUSEA OR VOMITING Potassium Chloride (K-Dur) 20 meq PO DAILY [facility] Last Admin: 10/18/18 08:15 Dose: 20 meq Senna/Docusate Sodium (Alee-Colace) 1 tab PO BID [facility] Last Admin: 10/18/18 08:15 Dose: 1 tab Sennosides (Senokot) 17.2 mg PO Q12H PRN PRN Reason: Moderate Constipation Sodium Chloride (Ns Flush) 2 ml IV.FLUSH BID [facility] Last Admin: 10/18/18 08:16 Dose: 2 ml Sodium Chloride (Ns Flush) 2 ml IV.FLUSH PRN PRN PRN Reason: FLUSH AFTER USING IV ACCESS Allergies Allergy/AdvReac Type Severity Reaction Status Date / Time No Known Allergies Allergy Verified 10/16/18 14:30 Physical Exam Vital signs: Vital Signs 10/17/18 13:00 10/17/18 14:00 10/17/18 15:00 Temperature 98.6 F Pulse Rate 103 H 108 H 112 H Respiratory Rate 20 Blood Pressure 138/87 Pulse Oximetry 96 10/17/18 16:23 10/17/18 16:24 10/17/18 17:00 Temperature Pulse Rate 110 H 112 H Respiratory Rate 18 Blood Pressure Pulse Oximetry 10/17/18 18:00 10/17/18 19:00 10/17/18 20:00 Temperature 98.4 F Pulse Rate 89 109 H 104 H Respiratory Rate 18 Blood Pressure 148/78 H Pulse Oximetry 98 96 10/17/18 21:00 10/17/18 22:00 10/17/18 23:00 Temperature 98.4 F Pulse Rate 106 H 92 H 96 H Respiratory Rate 20 Blood Pressure 110/71 Pulse Oximetry 98 10/18/18 00:00 10/18/18 01:00 10/18/18 02:00 Temperature Pulse Rate 94 H 92 H 88 Respiratory Rate Blood Pressure Pulse Oximetry 10/18/18 03:00 10/18/18 04:00 10/18/18 05:00 Temperature 98.2 F Pulse Rate 91 H 92 H 90 Respiratory Rate 20 Blood Pressure 128/86 Pulse Oximetry 96 10/18/18 06:00 10/18/18 07:00 10/18/18 08:00 Temperature 97.9 F Pulse Rate 90 104 H 102 H Respiratory Rate 19 Blood Pressure 130/70 Pulse Oximetry 91 L 10/18/18 09:00 10/18/18 09:26 10/18/18 10:02 Temperature Pulse Rate 107 H 108 H Respiratory Rate Blood Pressure Pulse Oximetry 91 L 10/18/18 10:53 10/18/18 12:00 10/18/18 12:44 Temperature 98.1 F Pulse Rate 104 H 99 H 92 H Respiratory Rate 18 Blood Pressure 134/88 Pulse Oximetry 92 L Intake & Output 10/17/18 10/18/18 10/18/18 18:59 06:59 18:59 Intake Total 605 / 605 315 / 315 Balance 605 / 605 315 / 315 Weight 247 lb 2.211 oz Intake: IV 125 / 125 75 / 75 Cardizem Inj 125 MG In NS Inj 125 / 125 75 / 75 100 ML @ 5 MG/HR 5 mls/hr IV. CONT TITRATE PRN Rx#:[id number] Oral 480 / 480 240 / 240 Other: # Voids 4 5 Date of Last Bowel Movement 10/17/18 10/16/18 10/16/18 # Bowel Movements 1 Narrative: In NAD Lungs clear Cor irreg Abdomen soft Trace LE edema Results 10/17/18 05:52 12/13/18 00:00 Cardiac Enzymes 10/16/18 10/16/18 Range/Units 13:15 13:15 AST 32 (15-37) U/L Troponin I Less than 0.02 L (0.02-0.05) ng/mL B-Natriuretic Peptide 233 H (0-100) pg/mL Coagulation 10/16/18 10/16/18 Range/Units 13:15 13:15 PT 10.8 (9.8-11.6) sec APTT 28.0 (23.4-31.7) sec B-Natriuretic Peptide 233 H (0-100) pg/mL CBC 10/16/18 10/17/18 Range/Units 13:15 05:52 WBC 7.1 6.5 (4.0-11.0) th/mm3 RBC 4.03 L 4.19 L (4.50-5.90) mil/mm3 Hgb 12.9 L 13.2 (13.0-17.0) gm/dL Hct 39.3 39.5 (39.0-51.0) % Plt Count 260 260 (150-450) th/mm3 Neut # (Auto) 5.5 4.7 (1.8-7.7) th/mm3 Lymph # (Auto) 0.8 L 0.9 L (1.0-4.8) th/mm3 Carbon # (Auto) 0.7 0.7 (0.0-0.9) th/mm3 Eos # (Auto) 0.0 0.1 (0.0-0.4) th/mm3 Baso # (Auto) 0.0 0.0 (0.0-0.2) th/mm3 Comprehensive Metabolic Panel 10/16/18 10/18/18 Range/Units 13:15 00:00 Sodium 142 140 (136-145) meq/L Potassium 4.2 4.1 (3.5-5.1) meq/L Chloride 103 101 (98-107) meq/L Carbon Dioxide 31.7 35.0 H (21.0-32.0) meq/L BUN 23 H 21 H (7-18) mg/dL Creatinine 1.11 1.00 (0.60-1.30) mg/dL Calcium 8.6 8.2 L (8.5-10.1) mg/dL AST 32 (15-37) U/L ALT 47 (12-78) U/L Alkaline Phosphatase 68 (45-117) U/L Total Protein 7.4 (6.4-8.2) g/dL Albumin 3.6 (3.4-5.0) g/dL Intake and Output 10/17/18 10/18/18 10/18/18 22:59 06:59 14:59 Intake Total 680 / 680 240 / 240 Balance 680 / 680 240 / 240 Intake: IV 200 / 200 Cardizem Inj 125 MG In NS Inj 200 / 200 100 ML @ 5 MG/HR 5 mls/hr IV. CONT TITRATE PRN Rx#:[id number] Oral 480 / 480 240 / 240 Other: # Voids 4 5 Date of Last Bowel Movement 10/16/18 10/16/18 10/16/18 # Bowel Movements 1 Weight 247 lb 2.211 oz - Imaging and Cardiology Imaging: Impressions Chest X-Ray 10/16/18 13:12 CONCLUSION: No evidence of acute cardiopulmonary process. Venous Doppler Study 10/16/18 13:12 CONCLUSION: The study is negative for bilateral lower extremity deep venous thrombosis. Chest CTA 10/16/18 14:22 CONCLUSION: No evidence of pulmonary embolism. Scattered groundglass opacities bilaterally with small bilateral effusions. This may reflect edema. Followup CT scan in 3 months is recommended. Assessment and Plan - Assessment (1) Atrial fibrillation with RVR Code(s): I48.91 - Unspecified atrial fibrillation Status: Acute (2) HTN (hypertension) Code(s): I10 - Essential (primary) hypertension Status: Acute (3) Hyperlipidemia Code(s): E78.5 - Hyperlipidemia, unspecified Status: Acute - Plan AF rate controlled, continue metoprolol. BP controlled. Continue anticoagulation with Eliquis. Echo with no significant LV dysfunction DC home. Will schedule f/u in our office after discharge. Progress Note: Quality - AMI Clinical Trial Participant: No
== END 2018-10-18 13:48 | disposition home or self-care (01) ==
LOC: NEPE 12:40 → NEDA 16:06 → HCIS 21:32
PROVIDERS: ADMIT Family Medicine; ATTEND Family Medicine